=== PATIENT | male | born 1995 | race Caucasian/White ===

== ENCOUNTER 2018-01-25 15:06 | Emergency (ER) | payer OTHER ==
[2018-01-25 15:57] LABS: ABS Basophils 0 10^3/ul (0-0.2); ABS Eosinophils 0.1 10^3/ul (0-0.6); ABS Lymphocytes 1.7 10^3/ul (1.0-4.8); ABS Monocytes 0.6 10^3/ul (0-0.8); ABS Neutrophils 5.8 10^3/ul (1.5-7.7); ABS Nucleated RBC 0 10^3/ul; Eosinophil % 1.5 % (0-6); Hematocrit 45 % (42-52); Hemoglobin 15.6 g/dl (14.0-18.0); Lymphocyte % 20.8 % (25-47); Mean Corpuscular HGB Conc 35 g/dl (31-36); Mean Corpuscular Hemoglobin 30 pg (27-31); Mean Corpuscular Volume 87 fL (80-94); Mean Platelet Volume 7.5 um3 (7.4-10.4); Nucleated Red Blood Cells % 0.1; Platelet Count 210 10^3/ul (150-450); Red Blood Count 5.18 10^6/ul (4.00-5.40); Red Cell Distribution Width 12 % (10.5-15); White Blood Count 8.3 10^3/ul (3.5-10.8)
[2018-01-25] MEDS ORDERED: Iodixanol* (CONTRAST) 320 MG/ML 100 ML SDV IV ONE (16:06)
[2018-01-25 16:17] LABS: EGFR Non-African American 68.5 (>60); INR 1.07 (0.77-1.02)
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
--- NOTE | 2018-01-25 16:32 | RAD ---
HISTORY: Blunt trauma to back - Lt > Rt pain COMPARISONS: None TECHNIQUE: Multiple contiguous axial CT scans of the chest were obtained after the administration of nonionic intravenous contrast, timed to the systemic arterial phase of contrast enhancement.. Coronal and sagittal multiplanar reformations are also submitted for review. 3-D volumetric reconstructions of the aorta are also submitted for review. FINDINGS: NECK AND THYROID: The lower neck and thyroid are unremarkable. CHEST WALL: There is no lower cervical, axillary, or supraclavicular lymphadenopathy by size criteria. HEART AND PERICARDIUM: The heart is unremarkable. AORTA AND PULMONARY VASCULATURE: There is ectasia of ascending thoracic aorta which measures up to 2.6 cm in diameter. There is no intimal flap to suggest dissection. There is no periaortic hematoma. The pulmonary vasculature is unremarkable for the phase of contrast administration. MEDIASTINUM: There is no mediastinal lymphadenopathy by size criteria. FLIP: There is no hilar lymphadenopathy by size criteria. AIRWAY AND ESOPHAGUS: The airway is unremarkable, without endobronchial filling defect. The esophagus is grossly normal. LUNG PARENCHYMA: The lungs are clear. PLEURA: No pleural abnormalities are noted. UPPER ABDOMEN: The upper abdomen is unremarkable. BONES AND SOFT TISSUES: The vertebral bodies are preserved in height. The spinous processes are intact. There is no displaced fracture. There is diffuse loss of intervertebral disc height. OTHER: None. IMPRESSION: NO ACUTE CT PATHOLOGY OF THE VISUALIZED CHEST. THERE IS NO PERIAORTIC HEMATOMA OR INTIMAL FLAP.
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
[2018-01-25 17:07] VITALS: BP 127/79
== END 2018-01-25 17:06 | disposition home or self-care (01) ==
LOC: ED 15:06
DX: S29.9XXA Unspecified injury of thorax, initial encounter (principal); W17.89XA Other fall from one level to another, initial encounter; Y93.89 Activity, other specified; Y92.89 Other specified places as the place of occurrence of the external cause; R04.2 Hemoptysis; Z72.0 Tobacco use
CPT/HCPCS: 36415; 70450; 71275; 72125; 80053; 83605; 85025; 85610; 85730; 86850; 86900; 86901; 99282; Q9967